=== PATIENT | female | born 1995 | race African-American/Black ===

== ENCOUNTER 2022-04-08 10:42 | Outpatient (CLI) | payer OTHER, SELFPAY ==
--- NOTE | ~2022-04-08 | US_ITS ---
US breast RT limited 04/08/2022 11:20 Indication: Right breast lump Procedure: High-resolution ultrasound of the right breast Comparison: No prior studies for comparison. Findings: At 7:00, 2 cm from the nipple, there is an oval hypoechoic mass with parallel orientation, no significant posterior features and no internal vascularity measuring 1.3 x 0.8 x 1.5 cm. Impression: 1: Right breast mass measuring 1.5 cm at 7:00, 2 cm from the nipple, likely benign. BI-RADS CATEGORY 3-PROBABLY BENIGN FINDING RECOMMENDATION: Six-month follow-up right breast ultrasound recommended. Reviewed, dictated and finalized at location A. Impression: 1: Right breast mass measuring 1.5 cm at 7:00, 2 cm from the nipple, likely ashley ign. BI-RADS CATEGORY 3-PROBABLY BENIGN FINDING RECOMMENDATION: Six-month follow-up right breast ultrasound recommended.
== END 2022-04-08 10:43 | disposition home or self-care (01) ==
PROVIDERS: Visit Provider Nurse Practitioner Obstetrics & Gynecology
DX: N63.13 Unspecified lump in the right breast, lower outer quadrant (principal)
CPT/HCPCS: 76642